=== PATIENT | male | born 1945 | race Caucasian/White ===

== ENCOUNTER 2017-01-24 12:39 | Observation (INO) | payer OTHER, BC ==
[~2017-01-24] VITALS: Ht 188 cm; Wt 102.3 kg
[~2017-01-24 12:39] MED LIST: ADULT LOW STREN81 M2 PO; ALTACE10 MG PO; ASPIRIN81 M1 PO; ATACAND4 MG PO; CRESTOR20 MG PO; CRESTOR40 MG PO; Ecotrin PO; PROSTATE 2.4 C1 EACH PO; PriLOSEC PO; SERTRALINE HCL25 MG PO; SERTRALINE HCL50 MG PO; ST. JOSEPH ASPI81 MG PO; TYLENOL REGULA325 MG PO; ZETIA10 MG PO; ZYRTEC10 M2 PO
[2017-01-24 14:34] LABS: EOSINOPHIL (%) 3.1 % (0-5); EOSINOPHIL COUNT 0.2 K/uL (0-0.3); HEMATOCRIT 43.6 % (38.0-50.0); IMMATURE GRANULOCYTE (%) 0.2 % (0.0-0.7); INSTRUMENT ABS NEUTROPHIL CT 3.4 K/uL; LYMPHOCYTE COUNT 1.3 K/uL (1.0-2.8); MCH 32.7 PG (29.0-34.0); MCHC 33.3 G/DL (30.0-36.0); MCV 98.4 FL (86-99); MEAN PLAT.VOLUME 10.9 uM^3 (9.0-12.4); MONOCYTE (%) 6.7 % (3-12); MONOCYTE COUNT 0.4 K/uL (0-0.8); NEUTROPHIL (%) 65.2 % (45-76); NEUTROPHIL COUNT 3.4 K/uL (1.8-6.4); PLATELET COUNT 171 K/uL (156-360); RBC DIS.WIDTH-CV 12.1 % (11.8-14.6); RED BLOOD COUNT 4.43 M/uL (4.00-5.50); WHITE BLOOD COUNT 5.2 K/uL (4.1-10.2)
[2017-01-24 14:42] LABS: CHLORIDE 111 mEq/L (99-109); POTASSIUM 4.4 mEq/L (3.7-5.4); SODIUM 144 mEq/L (136-147)
[2017-01-24 14:45] LABS: GLUCOSE 107 mg/dL (70-99)
[2017-01-24 14:46] LABS: ANION GAP 8 MEQ/L (2-14); D-DIMER ELISA 0.25 mg/L FEU (< 0.57)
[2017-01-24 14:47] LABS: TOTAL BILIRUBIN 0.6 mg/dL (0.0-1.0)
[2017-01-24 14:48] LABS: ALKALINE PHOSPHATASE 52 IU/L (3-129)
[2017-01-24 14:49] LABS: GFR ESTIMATE (CALCULATED) > 59 mL/min/
[2017-01-24 14:50] LABS: UREA NITROGEN (BUN) 17 mg/dL (9-23)
[2017-01-24 14:52] LABS: CREATINE KINASE 187 IU/L (1-294); TOTAL CK 187 IU/L (1-294)
[2017-01-24 14:55] LABS: TROP-I INTERPRETATION NEGATIVE; TROPONIN-I < 0.01 ng/mL (0.0-0.30)
[2017-01-24 14:57] LABS: CK-MB 3.7 ng/mL (0.0-4.9)
[2017-01-24 18:08] VITALS: BP 161/98
[2017-01-24 20:02] VITALS: BP 145/91
[2017-01-24 22:01] LABS: TROP-I INTERPRETATION NEGATIVE; TROPONIN-I < 0.01 ng/mL (0.0-0.30)
[2017-01-24 23:35] VITALS: BP 159/89
[2017-01-25 03:44] VITALS: BP 141/91
[2017-01-25 04:05] LABS: HEMATOCRIT 42.9 % (38.0-50.0); MCHC 33.6 G/DL (30.0-36.0); MCV 98.4 FL (86-99); MEAN PLAT.VOLUME 11.2 uM^3 (9.0-12.4); PLATELET COUNT 182 K/uL (156-360); RBC DIS.WIDTH-SD 44.2 % (39-53); RED BLOOD COUNT 4.36 M/uL (4.00-5.50); WHITE BLOOD COUNT 6.7 K/uL (4.1-10.2)
[2017-01-25 04:08] LABS: CHLORIDE 110 mEq/L (99-109); POTASSIUM 4.2 mEq/L (3.7-5.4); SODIUM 141 mEq/L (136-147)
[2017-01-25 04:10] LABS: GLUCOSE 122 mg/dL (70-99)
[2017-01-25 04:11] LABS: ANION GAP 8 MEQ/L (2-14)
[2017-01-25 04:14] LABS: GFR ESTIMATE (CALCULATED) > 59 mL/min/
[2017-01-25 04:15] LABS: UREA NITROGEN (BUN) 19 mg/dL (9-23)
[2017-01-25 04:17] LABS: TROP-I INTERPRETATION NEGATIVE; TROPONIN-I < 0.01 ng/mL (0.0-0.30)
[2017-01-25 04:43] LABS: HDL CHOLESTEROL 27 MG/DL (Desirable>=40); LDL CHOLESTEROL 93 mg/dL (Desirable<100); NON-HDL CHOLESTEROL 122 mg/dL (Desirable<160); TOTAL CHOLESTEROL 149 mg/dL (Desirable<200); TRIGLYCERIDES 145 MG/DL (Normal: <150)
[2017-01-25 07:16] VITALS: BP 138/88
[2017-01-26 07:43] LABS: Estimated Average Glucose 128 mg/dL (70-123); HEMOGLOBIN A1c (GLYCOHEMOGLOB) 6.1 % HGB (Below 5.7)
== END 2017-01-25 10:06 | disposition home or self-care (01) ==
LOC: EME 12:39 → EDOF 17:22 → 5WEST 17:52
PROVIDERS: Emergency Medicine; Student in an Organized Health Care Education/Training Program
DX: R07.89 Other chest pain (principal); I25.10 Atherosclerotic heart disease of native coronary artery without angina pectoris; I10 Essential (primary) hypertension; E78.2 Mixed hyperlipidemia; F32.9 Major depressive disorder, single episode, unspecified; Z95.5 Presence of coronary angioplasty implant and graft
CPT/HCPCS: 71010; 80048; 80053; 80061; 82550; 82553; 83036; 84484; 85025; 85027; 85379; 93005; 99281; 99285; G0378

== ENCOUNTER 2018-04-23 05:10 | Observation (INO) | payer OTHER, BC ==
[~2018-04-23] VITALS: Ht 188 cm; Wt 102.5 kg
[2018-04-23 05:51] LABS: HEMATOCRIT 43.4 % (38.0-50.0); HEMOGLOBIN 15.1 G/DL (12.5-16.6); MCH 34.5 PG (29.0-34.0); MCHC 34.8 G/DL (30.0-36.0); MCV 99.1 FL (86-99); PLATELET COUNT 156 K/uL (156-360); RBC DIS.WIDTH-CV 12.1 % (11.8-14.6); RBC DIS.WIDTH-SD 44.5 % (39-53); RED BLOOD COUNT 4.38 M/uL (4.00-5.50); WHITE BLOOD COUNT 6.3 K/uL (4.1-10.2)
[2018-04-23 06:23] LABS: CHLORIDE 109 mEq/L (99-109); POTASSIUM 4.5 mEq/L (3.7-5.4); SODIUM 144 mEq/L (136-147)
[2018-04-23 06:25] LABS: GLUCOSE 144 mg/dL (70-99)
[2018-04-23 06:29] LABS: GFR ESTIMATE (CALCULATED) > 59 mL/min/ (58.99-99999)
[2018-04-23 06:30] LABS: UREA NITROGEN (BUN) 14 mg/dL (9-23)
[2018-04-23 07:34] LABS: TROP-I INTERPRETATION NEGATIVE; TROPONIN-I < 0.01 ng/mL (0.0-0.30)
[2018-04-23 11:08] LABS: ALBUMIN 4.2 g/dL (3.2-4.8)
[2018-04-23 11:11] LABS: TOTAL PROTEIN 6.3 g/dL (6.4-8.3)
[2018-04-23 11:13] LABS: TOTAL BILIRUBIN 0.9 mg/dL (0.0-1.0)
[2018-04-23 11:14] LABS: ALKALINE PHOSPHATASE 60 IU/L (3-129)
[2018-04-23 11:16] LABS: AST (GOT) 22 IU/L (2-34)
[2018-04-23 11:17] LABS: ALT (GPT) 34 IU/L (3-49); DIRECT BILIRUBIN 0.4 mg/dL (0.0-0.3)
[2018-04-23 12:30] LABS: TROP-I INTERPRETATION NEGATIVE; TROPONIN-I < 0.01 ng/mL (0.0-0.30)
[2018-04-23 12:51] VITALS: BP 142/73
[2018-04-23 14:51] VITALS: BP 139/65
[2018-04-23 18:57] LABS: TROP-I INTERPRETATION NEGATIVE; TROPONIN-I < 0.01 ng/mL (0.0-0.30)
[2018-04-23] MEDS ORDERED: NITROGLYCERIN0.4 MG SL (19:36)
== END 2018-04-23 20:57 | disposition home or self-care (01) ==
LOC: EME 05:10 → EDOF 11:00 → ENRESERV 11:05 → 4SOUTH 12:43
PROVIDERS: Physician Assistant
DX: I25.118 Atherosclerotic heart disease of native coronary artery with other forms of angina pectoris (principal); E78.2 Mixed hyperlipidemia; I10 Essential (primary) hypertension; F41.8 Other specified anxiety disorders; I49.3 Ventricular premature depolarization; R73.03 Prediabetes; R20.2 Paresthesia of skin; R20.0 Anesthesia of skin; Z82.49 Family history of ischemic heart disease and other diseases of the circulatory system; Z82.0 Family history of epilepsy and other diseases of the nervous system; Z88.2 Allergy status to sulfonamides; Z79.82 Long term (current) use of aspirin
CPT/HCPCS: 71046; 71275; 80048; 80076; 84484; 85027; 93005; G0378